=== PATIENT | female | born 1955 ===

== ENCOUNTER 2018-11-14 14:57 | Outpatient (CLI) | payer OTHER | END 2018-11-14 15:03 | disposition home or self-care (01) | LOC: LAB 14:57 | DX: L02.612 Cutaneous abscess of left foot (principal) ==

== ENCOUNTER 2018-11-17 10:39 | Outpatient (CLI) | payer OTHER | END 2018-11-17 10:43 | disposition home or self-care (01) | LOC: LAB 10:39 | DX: L02.612 Cutaneous abscess of left foot (principal) ==

== ENCOUNTER → 2018-11-17 | Outpatient (CLI) | payer OTHER | END | disposition home or self-care (01) | LOC: RAD 11:02 | DX: M79.672 Pain in left foot (principal) ==